=== PATIENT | male | born 1975 | race Hispanic/Latino ===

== ENCOUNTER 2022-05-03 19:32 | Emergency (ER) | payer SELFPAY ==
[2022-05-03 21:39] VITALS: BP 130/78
== END 2022-05-04 03:00 | disposition left against medical advice (07) ==
LOC: ED 19:32
DX: F10.129 Alcohol abuse with intoxication, unspecified (principal); Z53.21 Procedure and treatment not carried out due to patient leaving prior to being seen by health care provider; Y90.9 Presence of alcohol in blood, level not specified